=== PATIENT | male | born 1940 | race Two or more races ===

== ENCOUNTER 2019-09-27 13:48 | Emergency (ER) | payer OTHER ==
[~2019-09-27] VITALS: Ht 167.6 cm; Wt 62.6 kg
[2019-09-27] MEDS ORDERED: TENORMIN50 M1 PO (13:56)
== END 2019-09-27 17:32 | disposition home or self-care (01) ==
LOC: ER 13:48
DX: L13.0 Dermatitis herpetiformis (principal); H10.89 Other conjunctivitis